=== PATIENT | female | born 1960 | race Caucasian/White ===

== ENCOUNTER → 2019-05-26 | Outpatient (CLI) | payer OTHER | END | disposition home or self-care (01) | LOC: LAB SHORT 10:43 → LAB EV 10:43 | DX: N39.0 Urinary tract infection, site not specified (principal) | CPT/HCPCS: 87086 ==

== ENCOUNTER 2020-05-07 08:34 | Day surgery (SDC) | payer OTHER | END 2020-05-07 22:38 | disposition home or self-care (01) | LOC: RAD 08:34 | DX: S46.011A Strain of muscle(s) and tendon(s) of the rotator cuff of right shoulder, initial encounter (principal); X58.XXXA Exposure to other specified factors, initial encounter | CPT/HCPCS: 20610; 73222; 77002; A9577; Q9967 ==

== ENCOUNTER → 2021-05-14 | Outpatient (CLI) | payer BC ==
[2021-05-20 12:08] LABS: M-SPIKE, % Not Observed % (Not Observed); PROTEIN,TOTAL,URINE 5.1 mg/dL (Not Estab.)
== END ==
LOC: LAB SHORT 12:19 → LAB 12:19
PROVIDERS: Physician Assistant Medical
DX: L29.8 Other pruritus (principal); L57.8 Other skin changes due to chronic exposure to nonionizing radiation; L81.4 Other melanin hyperpigmentation; R21 Rash and other nonspecific skin eruption; Z71.89 Other specified counseling; D22.62 Melanocytic nevi of left upper limb, including shoulder; D22.61 Melanocytic nevi of right upper limb, including shoulder
CPT/HCPCS: 84156; 84166